=== PATIENT | male | born 1990 ===

== ENCOUNTER 2021-09-06 18:11 | Emergency (ER) | payer OTHER ==
[~2021-09-06] VITALS: Ht 182.9 cm; Wt 72.7 kg
[2021-09-06] MEDS ORDERED: HYDR-3965 PO (23:58)
[2021-09-07] MEDS ORDERED: HYDROcodone/acetaminophen 10/325mg tab PO ONE
[2021-09-07 00:14] VITALS: BP 124/82
== END 2021-09-07 00:15 | disposition home or self-care (01) ==
LOC: ER 18:12
DX: S80.212A Abrasion, left knee, initial encounter (principal); S80.211A Abrasion, right knee, initial encounter; S50.311A Abrasion of right elbow, initial encounter; S50.811A Abrasion of right forearm, initial encounter; S60.511A Abrasion of right hand, initial encounter; S60.311A Abrasion of right thumb, initial encounter; S70.211A Abrasion, right hip, initial encounter; S00.81XA Abrasion of other part of head, initial encounter; W19.XXXA Unspecified fall, initial encounter; Z91.81 History of falling; Y93.39 Activity, other involving climbing, rappelling and jumping off; Y92.89 Other specified places as the place of occurrence of the external cause; Y99.8 Other external cause status
CPT/HCPCS: 12001; 70450; 70486; 72100; 73130; 99284; A4565; A6446; A6449